=== PATIENT | male | born 1985 | race Two or more races ===

== ENCOUNTER 2024-06-17 11:37 | Emergency (ER) | payer OTHER ==
[~2024-06-17] VITALS: Ht 182.9 cm; Wt 99.8 kg
[2024-06-17] MEDS ORDERED: ORPHENADRINE CITRATE 30 MG/ML AMPUL ONE (13:28)
[2024-06-17] MEDS ORDERED: KETOROLAC TROMETHAMINE 60 MG VIAL IM ONE ×2 (13:29→13:30)
[2024-06-17] MEDS ORDERED: ORPHENADRINE CITRATE 30 MG/ML AMPUL IM ONE (13:30)
== END 2024-06-17 14:46 | disposition home or self-care (01) ==
LOC: ER 11:39
DX: T14.90XA Injury, unspecified, initial encounter (principal); V49.9XXA Car occupant (driver) (passenger) injured in unspecified traffic accident, initial encounter; Y93.9 Activity, unspecified; Y92.413 State road as the place of occurrence of the external cause; Y99.9 Unspecified external cause status; M62.838 Other muscle spasm